=== PATIENT | female | born 1995 | race Caucasian/White ===

== ENCOUNTER 2023-08-20 13:57 | Outpatient (REF) | payer OTHER, SELFPAY ==
--- NOTE | ~2023-08-20 | MR_ITS ---
EXAMINATION: MR HIP WITH CONTRAST, RIGHT CLINICAL INFORMATION: Right hip pain. Trochanteric bursitis. COMPARISON: None available. TECHNIQUE: MRI of the right hip was performed after the intra-articular administration of a dilute gadolinium-containing solution on a high-field scanner. FINDINGS: There is focal linear extension of contrast along the base of the anterior superior labrum at the 2:00 position best demonstrated on series 6, image 8. Although smooth, this appears to be full-thickness, and therefore a focal tear is favored over a normal sublabral sulcus. The labrum appears otherwise normal. There is a small bony protuberance at the anterior superior femoral head and neck junction which increases the alpha angle to approximately 62 degrees. This is demonstrated on series 6, image 9; and series 9, image 3. This may be a source of cam impingement. No focal articular cartilage defect or loose body. No stress reaction, fracture, or evidence of avascular necrosis. No muscle strain or tear. No bursitis. MR/MR hip RT w con IMPRESSION: 1. Focal undersurface tear of the anterior superior labrum at the 2:00 position. 2. Small bony protuberance at the anterior superior femoral head and neck junction which may be a source of cam impingement.
--- NOTE | ~2023-08-20 | FL_ITS ---
Right hip arthrogram Indications: Right hip pain. Intra-articular gadolinium injection is needed prior to MRI. Procedure: Risks and benefits and possible complications were discussed with the patient and the consent form was signed. The patient was placed supine on the fluoroscopy table. The right hip was prepped and draped in normal sterile fashion. 1% buffered lidocaine was used for anesthesia. A 22-gauge spinal needle was used to access the hip joint. Intra-articular position of the needle within the hip joint was verified using 3 cc of Omnipaque 300. A total of 12 mL of gadolinium/saline (1:200) contrast mixture was then injected into the hip joint. The needle was then removed and a Band-Aid was applied to the injection site. The patient tolerated the procedure well and was sent for to MRI. There were no immediate complications. FL/FL arthrogram hip RT Impression: Fluoroscopic right hip arthrogram The procedure was performed by Bill Xavier PA-C, and directly supervised by Dr. Mondragon.
[2023-08-20] MEDS: gadobutroL 2 ML VIAL IVPUSH (15:54)
== END 2023-08-20 13:58 | disposition home or self-care (01) ==
LOC: HO.XRAY 13:57
PROVIDERS: PCP Family Medicine; Visit Provider Family Medicine Sports Medicine
DX: M25.551 Pain in right hip (principal); M70.61 Trochanteric bursitis, right hip
CPT/HCPCS: 27093; 73525; 73722; A9585

== ENCOUNTER → 2023-08-20 14:32 | Outpatient (BNV) | payer OTHER, SELFPAY | PROVIDERS: PCP Family Medicine; Visit Provider Radiology Vascular & Interventional Radiology | DX: M25.551 Pain in right hip (principal) | CPT/HCPCS: 27093; 73525 ==

== ENCOUNTER 2024-01-20 12:15 | Outpatient (REF) | payer OTHER, SELFPAY ==
--- NOTE | ~2024-01-20 | MR_ITS ---
EXAMINATION: MR SHOULDER WITH CONTRAST, RIGHT CLINICAL INFORMATION: Pain. COMPARISON: None available. TECHNIQUE: MRI of the shoulder was performed following the intra-articular administration of a dilute gadolinium-containing solution (arthrogram) on a high-field scanner. FINDINGS: ROTATOR CUFF: Supraspinatus, infraspinatus, teres minor, subscapularis are intact. No muscle atrophy or fatty infiltration. BICEPS: Intact. CORACOACROMIAL ARCH: The undersurface of the acromion is mildly curved with no subacromial spur. The acromioclavicular joint is normal. LABRUM/CAPSULE: Minimal irregularity/fibrillation in the chondrolabral region of the inferior labrum. The labrum otherwise appears intact. No paralabral cyst is seen. GLENOHUMERAL JOINT/MARROW: No fracture. No evidence of significant arthropathy. No aggressive marrow replacing lesion. No axillary lymphadenopathy. MR/MR shoulder RT w con IMPRESSION: 1. Rotator cuff tendons are intact without evidence of measurable tear. 2. Minimal irregularity/fibrillation in the chondrolabral region of the inferior labrum. 3. No acute osseous abnormality.
--- NOTE | ~2024-01-20 | FL_ITS ---
RIGHT SHOULDER ARTHROGRAM INDICATIONS: Right shoulder pain. Intra-articular gadolinium injection is needed prior to MRI. PROCEDURE: Risks and benefits and possible complications were discussed with the patient and the consent form was signed. The patient was placed supine on the fluoroscopy table. The right shoulder was prepped and draped in normal sterile fashion. 1% buffered lidocaine was used for anesthesia. A 22-gauge spinal needle was used to access the shoulder joint. Intra-articular position of the needle within the shoulder joint was verified using 3 cc of Omnipaque 300. A total of 10 mL of gadolinium/saline (1:200) contrast mixture was then injected into the shoulder joint. The needle was then removed and a Band-Aid was applied to the injection site. The patient tolerated the procedure well and was sent to MRI. There were no immediate complications. Single spot view demonstrates no evidence of full-thickness rotator cuff tear. No significant arthritic changes are present. There is no narrowing of the subacromial space. FL/FL arthrogram shoulder RT IMPRESSION: Successful fluoroscopic guided intra-articular instillation of dilute gadolinium into the right shoulder joint. Patient will undergo subsequent [facility] MRI. The procedure was performed by nadir Xavier PA-C, and directly supervised by Dr. Galdamez.
[2024-01-20] MEDS: gadobutroL 2 ML VIAL IVPUSH (14:49)
== END 2024-01-20 12:16 | disposition home or self-care (01) ==
LOC: HO.XRAY 12:15
PROVIDERS: PCP Family Medicine; Visit Provider Family Medicine Sports Medicine
DX: M25.511 Pain in right shoulder (principal)
CPT/HCPCS: 23350; 73040; 73222; A9585

== ENCOUNTER → 2024-01-20 12:19 | Outpatient (BNV) | payer OTHER, SELFPAY | PROVIDERS: PCP Family Medicine; Visit Provider Physician Assistant Surgical | DX: M25.511 Pain in right shoulder (principal) | CPT/HCPCS: 23350; 73040 ==

== ENCOUNTER 2024-05-23 12:24 | Outpatient (REF) | payer OTHER, SELFPAY ==
--- NOTE | ~2024-05-23 | MR_ITS ---
EXAMINATION: MR HIP WITH CONTRAST, LEFT CLINICAL INFORMATION: Left hip pain. COMPARISON: Pre-MRI arthrogram of the left hip. MRI with contrast of the right hip July 2023. TECHNIQUE: MRI of the left hip was performed after the intra-articular administration of a dilute gadolinium-containing solution on a high-field scanner. FINDINGS: BONE/CARTILAGE: Articular cartilage normal. Marrow normal. Subtle subcortical cyst at the femoral head and neck junction. No definite bony protuberance. Alpha angle 45 degrees. LABRUM/CAPSULE: Trace fluid along the base of the anterior superior labrum more likely reflecting sublabral recess rather than tear. The surface of the labrum is smooth and intact. MUSCLES/TENDONS: Normal. NEUROVASCULAR STRUCTURES: Normal. SUBCUTANEOUS SOFT TISSUES: Normal. ADDITIONAL FINDINGS: The partially visualized pelvis is unremarkable. MR/MR hip LT w con IMPRESSION: 1. Trace fluid along the base of the anterior superior labrum more likely reflecting sublabral recess rather than tear. 2. Subtle subcortical cyst at the femoral head and neck junction. This can be associated with femoroacetabular impingement in some patients. Alpha angle within normal limits.
--- NOTE | ~2024-05-23 | FL_ITS ---
Left hip arthrogram Indications: Left hip pain. Intra-articular gadolinium injection is needed prior to MRI. Procedure: Risks and benefits and possible complications were discussed with the patient and the consent form was signed. The patient was placed hip on the fluoroscopy table. The left hip was prepped and draped in normal sterile fashion. 1% buffered lidocaine was used for anesthesia. A 22-gauge spinal needle was used to access the hip joint. Intra-articular position of the needle within the hip joint was verified using 3 cc of Omnipaque 300. A total of 10 mL of gadolinium/saline (1:200) contrast mixture was then injected into the hip joint. The needle was then removed and a Band-Aid was applied to the injection site. The patient tolerated the procedure well and was sent for to MRI. There were no immediate complications. FL/FL arthrogram hip LT Impression: Fluoroscopic left hip arthrogram The procedure was performed by Bill Xavier PA-C, and directly supervised by Dr. Gagnon.
[2024-05-24] MEDS: gadobutroL 2 ML VIAL IVPUSH (09:39)
== END 2024-05-23 12:25 | disposition home or self-care (01) ==
LOC: HO.XRAY 12:24
PROVIDERS: PCP Family Medicine; Visit Provider Student in an Organized Health Care Education/Training Program
DX: M25.552 Pain in left hip (principal)
CPT/HCPCS: 27093; 73525; 73722; A9585

== ENCOUNTER → 2024-05-23 12:31 | Outpatient (BNV) | payer OTHER, SELFPAY | PROVIDERS: PCP Family Medicine; Visit Provider Physician Assistant Surgical | DX: M25.552 Pain in left hip (principal) | CPT/HCPCS: 27093; 73525 ==